=== PATIENT | male | born 1955 | race Caucasian/White ===

== ENCOUNTER 2016-04-19 00:24 | Inpatient (IN) | payer OTHER, BC ==
[~2016-04-19] VITALS: Ht 172.7 cm; Wt 99.1 kg
[2016-04-19 00:49] LABS: ANION GAP 15 MEQ/L (2-14); CHLORIDE 96 mEq/L (99-109); CREATININE 1.8 mg/dL (0.6-1.3); GLUCOSE 225 mg/dL (70-99); ISTAT DEVICE 359068; POTASSIUM > 6.0 mEq/L (3.7-5.4); SODIUM 131 mEq/L (136-147); UREA NITROGEN (BUN) 80 mg/dL (9-23)
[2016-04-19 00:58] LABS: HEMATOCRIT 34.1 % (38.0-50.0); MCH 26.8 PG (29.0-34.0); MCHC 29.3 G/DL (30.0-36.0); MCV 91.4 FL (86-99); MEAN PLAT.VOLUME 12.4 uM^3 (9.0-12.4); PLATELET COUNT 226 K/uL (156-360); RBC DIS.WIDTH-CV 16.2 % (11.8-14.6); RBC DIS.WIDTH-SD 51.9 % (39-53); RED BLOOD COUNT 3.73 M/uL (4.00-5.50); WHITE BLOOD COUNT 16.6 K/uL (4.1-10.2)
[2016-04-19 01:19] LABS: TROP-I INTERPRETATION INDETERMINATE; TROPONIN-I 0.33 ng/mL (0.0-0.30)
[2016-04-19 01:34] LABS: NRBC (%) 0.5 /100 WBC (0-0)
[2016-04-19 01:58] LABS: AMYLASE 54 IU/L (1-118); CHLORIDE 95 mEq/L (99-109); SODIUM 133 mEq/L (136-147)
[2016-04-19 02:00] LABS: GLUCOSE 189 mg/dL (70-99)
[2016-04-19 02:01] LABS: ANION GAP 19 MEQ/L (2-14)
[2016-04-19 02:03] LABS: SERUM ETHYL ALCOHOL < 10 mg/dL
[2016-04-19 02:04] LABS: GFR ESTIMATE (CALCULATED) 32 mL/min/
[2016-04-19 02:05] LABS: UREA NITROGEN (BUN) 65 mg/dL (9-23)
[2016-04-19 02:07] LABS: LIPASE 41 U/L (1.0-51.0)
[2016-04-19 02:13] LABS: POTASSIUM 7.1 mEq/L (3.7-5.4)
[2016-04-19 02:18] LABS: ABS NEUTROPHIL COUNT 9.12; ANISOCYTOSIS 1+; BURR CELLS OCC; EOSINOPHIL ABS CT 0.66; HYPOCHROMASIA 1+; MACROCYTES OCC; MICROCYTOSIS 1+; OVALOCYTES OCC; PLAT.SUFFICIENCY ADEQUATE; POLYCHROMASIA OCC; SCHISTOCYTES RARE; USER ID DCS
[2016-04-19 02:19] LABS: DELETE MACHINE DIFF? YES
[2016-04-19 02:23] LABS: PTT > 150.0 (25-32)
[2016-04-19 02:27] LABS: INTER. NORMALIZED RATIO 1.7; PROTHROMBIN TIME 17.5 (9.2-11.2)
[2016-04-19 04:03] LABS: METH RESISTANT S AUREUS PCR POSITIVE (NEGATIVE)
[2016-04-19 04:07] LABS: PROBE CHECK PASS
[2016-04-19 05:28] LABS: POINT-OF-CARE METER ID UU13113803
[2016-04-19 06:00] VITALS: BP 123/74
[2016-04-19 06:25] LABS: TROP-I INTERPRETATION INDETERMINATE; TROPONIN-I 0.37 ng/mL (0.0-0.30)
[2016-04-19 06:35] LABS: ALKALINE PHOSPHATASE 182 IU/L (3-129); ANION GAP 17 MEQ/L (2-14); CHLORIDE 94 MEQ/L (99-109); GFR ESTIMATE (CALCULATED) 32 mL/min/; GLUCOSE 186 mg/dL (70-99); SAMPLE HEMOLYSIS CHECK 0; SAMPLE ICTERIC CHECK 0; SAMPLE LIPEMIA CHECK 0; SODIUM 135 MEQ/L (136-147); UREA NITROGEN (BUN) 65 mg/dL (9-23)
[2016-04-19 06:42] LABS: POTASSIUM 6.2 MEQ/L (3.7-5.4)
[2016-04-19 06:44] LABS: HEMATOCRIT 35.4 % (38.0-50.0); MCH 27.6 PG (29.0-34.0); MCHC 30.5 G/DL (30.0-36.0); MCV 90.3 FL (86-99); MEAN PLAT.VOLUME 12.6 uM^3 (9.0-12.4); NRBC (%) 0.3 /100 WBC (0-0); PLATELET COUNT 234 K/uL (156-360); RBC DIS.WIDTH-CV 16.5 % (11.8-14.6); RBC DIS.WIDTH-SD 54.5 % (39-53); RED BLOOD COUNT 3.92 M/uL (4.00-5.50); WHITE BLOOD COUNT 18.6 K/uL (4.1-10.2)
[2016-04-19 07:07] LABS: INTER. NORMALIZED RATIO 1.6; PROTHROMBIN TIME 16.7 (9.2-11.2)
[2016-04-19 07:24] LABS: EOSINOPHIL (%) 0.3 % (0-5); EOSINOPHIL COUNT 0.1 K/uL (0-0.3); HEMATOLOGY COMMENT 1 SMEAR COMPATIBLE; IMMATURE GRANULOCYTE (%) 0.6 % (0.0-0.7); IMMATURE GRANULOCYTE COUNT 0.1 K/uL; LYMPHOCYTE COUNT 1.5 K/uL (1.0-2.8); MONOCYTE (%) 11.1 % (3-12); MONOCYTE COUNT 2.1 K/uL (0-0.8); NEUTROPHIL (%) 79.7 % (45-76); NEUTROPHIL COUNT 14.8 K/uL (1.8-6.4); PLAT.SUFFICIENCY ADEQUATE
[2016-04-19 07:32] LABS: PTT > 150.0 (25-32)
[2016-04-19 07:44] LABS: BASE EXCESS -5.1 mEq/L (-3 to +3); BICARBONATE 24.1 mEq/L (22-26); METHEMOGLOBIN 1.5 % (0-1.5); PCO2 66 mm Hg (35-45); PO2 242 mm Hg (80-100)
[2016-04-19 07:45] LABS: COMMENTS - BLOOD GASES +C; DEVICE PB840; FI02 65 %; MECHANICAL RATE 16 resp/min; MODE ACVC+; PEEP 5 CM/H20; SITE RR +A; TIDAL VOLUME 500 ML; TOTAL RESP RATE 19 resp/min
[2016-04-19 07:46] LABS: pH 7.17 (7.35-7.45)
[2016-04-19 11:35] LABS: C DIFF TOXIN NEGATIVE (NEGATIVE); PROBE CHECK PASS; SPECIMEN PROCESSING CONTROL PASS
[2016-04-19 11:59] LABS: BASE EXCESS -1.6 mEq/L (-3 to +3); BICARBONATE 25.1 mEq/L (22-26); CARBOXY HGB 1.9 % (0-5); COMMENTS - BLOOD GASES +C; DEVICE PB840; FI02 80 %; METHEMOGLOBIN 1.5 % (0-1.5); PCO2 51 mm Hg (35-45); PO2 65 mm Hg (80-100); SITE A-LINE
[2016-04-19 12:00] LABS: MECHANICAL RATE 22 resp/min; MODE ACVC+; PEEP 5 CM/H20; TIDAL VOLUME 500 ML; TOTAL RESP RATE 22 resp/min
[2016-04-19 12:39] LABS: HEMATOCRIT 32.1 % (38.0-50.0); MCH 26.6 PG (29.0-34.0); MCHC 30.5 G/DL (30.0-36.0); MCV 87.2 FL (86-99); MEAN PLAT.VOLUME 11.6 uM^3 (9.0-12.4); PLATELET COUNT 196 K/uL (156-360); RBC DIS.WIDTH-CV 16.3 % (11.8-14.6); RBC DIS.WIDTH-SD 52.1 % (39-53); RED BLOOD COUNT 3.68 M/uL (4.00-5.50); WHITE BLOOD COUNT 12.7 K/uL (4.1-10.2)
[2016-04-19 12:41] LABS: INTER. NORMALIZED RATIO 1.6; PROTHROMBIN TIME 16.9 (9.2-11.2)
[2016-04-19 12:53] LABS: CREATINE KINASE 851 IU/L (1-294); TOTAL CK 851 IU/L (1-294)
[2016-04-19 13:09] LABS: TROP-I INTERPRETATION POSITIVE
[2016-04-19 13:14] LABS: TROPONIN-I 2.29 ng/mL (0.0-0.30)
[2016-04-19 13:20] LABS: CK-MB 64.5 ng/mL (0.0-4.9)
[2016-04-19 14:15] LABS: ANION GAP 19 MEQ/L (2-14); CHLORIDE 95 MEQ/L (99-109); GFR ESTIMATE (CALCULATED) 32 mL/min/; GLUCOSE 272 mg/dL (70-99); SAMPLE HEMOLYSIS CHECK 0; SAMPLE ICTERIC CHECK 0; SAMPLE LIPEMIA CHECK 0; SODIUM 135 MEQ/L (136-147); UREA NITROGEN (BUN) 73 mg/dL (9-23)
[2016-04-19 14:16] LABS: POTASSIUM 4.5 MEQ/L (3.7-5.4)
[2016-04-19 14:20] LABS: EOSINOPHIL (%) 0.2 % (0-5); HEMATOLOGY COMMENT 1 SMEAR COMPATIBLE; IMMATURE GRANULOCYTE (%) 0.4 % (0.0-0.7); IMMATURE GRANULOCYTE COUNT 0.1 K/uL; LYMPHOCYTE COUNT 0.8 K/uL (1.0-2.8); MONOCYTE (%) 6.9 % (3-12); MONOCYTE COUNT 0.9 K/uL (0-0.8); NEUTROPHIL (%) 86.2 % (45-76); NEUTROPHIL COUNT 10.9 K/uL (1.8-6.4); PLAT.SUFFICIENCY ADEQUATE
[2016-04-19 18:35] LABS: HEMATOCRIT 32.5 % (38.0-50.0); MCH 26.4 PG (29.0-34.0); MCHC 31.1 G/DL (30.0-36.0); MCV 84.9 FL (86-99); MEAN PLAT.VOLUME 11.6 uM^3 (9.0-12.4); PLATELET COUNT 209 K/uL (156-360); RBC DIS.WIDTH-CV 16.3 % (11.8-14.6); RBC DIS.WIDTH-SD 50.5 % (39-53); RED BLOOD COUNT 3.83 M/uL (4.00-5.50); WHITE BLOOD COUNT 10.2 K/uL (4.1-10.2)
[2016-04-19 18:36] LABS: EOSINOPHIL (%) 0.4 % (0-5); IMMATURE GRANULOCYTE (%) 0.2 % (0.0-0.7); LYMPHOCYTE COUNT 1.2 K/uL (1.0-2.8); MONOCYTE (%) 6.1 % (3-12); MONOCYTE COUNT 0.6 K/uL (0-0.8); NEUTROPHIL (%) 81.9 % (45-76); NEUTROPHIL COUNT 8.3 K/uL (1.8-6.4)
[2016-04-19 18:45] LABS: INTER. NORMALIZED RATIO 1.6; PROTHROMBIN TIME 16.1 (9.2-11.2); PTT 48.3 (25-32)
[2016-04-19 18:58] LABS: ANION GAP 11 MEQ/L (2-14); CHLORIDE 96 MEQ/L (99-109); CREATINE KINASE 710 IU/L (1-294); GFR ESTIMATE (CALCULATED) 31 mL/min/; GLUCOSE 273 mg/dL (70-99); SAMPLE HEMOLYSIS CHECK 0; SAMPLE ICTERIC CHECK 0; SAMPLE LIPEMIA CHECK 0; SODIUM 135 MEQ/L (136-147); TOTAL CK 710 IU/L (1-294); UREA NITROGEN (BUN) 75 mg/dL (9-23)
[2016-04-19 19:04] LABS: TROP-I INTERPRETATION POSITIVE
[2016-04-19 19:17] LABS: TROPONIN-I 2.66 ng/mL (0.0-0.30)
[2016-04-19 19:51] LABS: BICARBONATE 27.1 mEq/L (22-26); CARBOXY HGB 1.9 % (0-5); METHEMOGLOBIN 1.3 % (0-1.5); PCO2 49 mm Hg (35-45); pH 7.35 (7.35-7.45)
[2016-04-19 19:52] LABS: COMMENTS - BLOOD GASES C+; PO2 80 mm Hg (80-100); SITE A LINE
[2016-04-19 19:53] LABS: DEVICE VENTILATOR; FI02 80 %; MECHANICAL RATE 22 resp/min; MODE AC VC+; PEEP 5 CM/H20; TIDAL VOLUME 500 ML; TOTAL RESP RATE 22 resp/min
[2016-04-19 20:53] LABS: CK-MB 59.4 ng/mL (0.0-4.9)
[2016-04-19] MEDS ORDERED: LEVOTHYROXINE75 MCG GT (22:25)
[2016-04-19] MEDS ORDERED: HEPARIN SO5000 UNITS SC (22:26)
[2016-04-19] MEDS ORDERED: GERI-TUSSI100 MG/5 M GT (22:26)
[2016-04-19] MEDS ORDERED: NEURONTIN50 MG/ML GT (22:27)
[2016-04-19] MEDS ORDERED: KLONOPIN0.5 M1 GT ×2 (22:28→22:38)
[2016-04-19] MEDS ORDERED: ATROVENT 00.5 MG/2.5 IH ×2 (22:29→22:41)
[2016-04-19] MEDS ORDERED: ALBUTEROL2.5 MG/3 M IH (22:29)
[2016-04-19] MEDS ORDERED: GLIPIZIDE5 MG GT (22:34)
[2016-04-19] MEDS ORDERED: ACIDOPHILUS1 EAC5 GT (22:35)
[2016-04-19] MEDS ORDERED: LORATADINE10 M2 GT (22:35)
[2016-04-19] MEDS ORDERED: SIMVASTATIN40 MG GT (22:36)
[2016-04-19] MEDS ORDERED: MELATIN3 MG GT (22:36)
[2016-04-19] MEDS ORDERED: MIRTAZAPINE15 MG GT (22:37)
[2016-04-19] MEDS ORDERED: OXYCODONE HCL10 MG GT (22:38)
[2016-04-19] MEDS ORDERED: PROVENTIL,2.5 MG/3 M IH (22:40)
[2016-04-19] MEDS ORDERED: CHILDREN'S160 MG/23 GT (22:40)
[2016-04-19] MEDS ORDERED: BISAC-EVAC10 MG PR (22:46)
[2016-04-19] MEDS ORDERED: MILK OF MAGN GT (22:46)
[2016-04-19] MEDS ORDERED: FLEET ENEMA EX230 ML PR (22:47)
[2016-04-20] VITALS (15 sets, daily range): BP systolic 59–114; BP diastolic 38–68
[2016-04-20 00:20] LABS: POINT-OF-CARE METER ID UU13113748
[2016-04-20 00:28] LABS: HEMATOCRIT 33.4 % (38.0-50.0); MCH 26.3 PG (29.0-34.0); MCHC 31.1 G/DL (30.0-36.0); MCV 84.3 FL (86-99); MEAN PLAT.VOLUME 11.9 uM^3 (9.0-12.4); PLATELET COUNT 235 K/uL (156-360); RBC DIS.WIDTH-CV 16.2 % (11.8-14.6); RBC DIS.WIDTH-SD 49.1 % (39-53); RED BLOOD COUNT 3.96 M/uL (4.00-5.50); WHITE BLOOD COUNT 8.5 K/uL (4.1-10.2)
[2016-04-20 00:40] LABS: INTER. NORMALIZED RATIO 1.6; PROTHROMBIN TIME 16.6 (9.2-11.2); PTT 51.6 (25-32)
[2016-04-20 00:50] LABS: TROP-I INTERPRETATION POSITIVE
[2016-04-20 00:56] LABS: TROPONIN-I 3.04 ng/mL (0.0-0.30)
[2016-04-20 01:21] LABS: BASE EXCESS 2.4 mEq/L (-3 to +3); BICARBONATE 27.8 mEq/L (22-26); CARBOXY HGB 1.9 % (0-5); METHEMOGLOBIN 1.4 % (0-1.5); PCO2 46 mm Hg (35-45); PO2 83 mm Hg (80-100); pH 7.39 (7.35-7.45)
[2016-04-20 02:04] LABS: ANISOCYTOSIS 2+; MACROCYTES 1+; MICROCYTOSIS 1+; OVALOCYTES FEW; PLAT.SUFFICIENCY ADEQUATE
[2016-04-20 02:05] LABS: EOSINOPHIL (%) 2.7 % (0-5); EOSINOPHIL COUNT 0.2 K/uL (0-0.3); IMMATURE GRANULOCYTE (%) 0.3 % (0.0-0.7); LYMPHOCYTE COUNT 1.2 K/uL (1.0-2.8); MONOCYTE (%) 5.6 % (3-12); MONOCYTE COUNT 0.4 K/uL (0-0.8); NEUTROPHIL (%) 76.5 % (45-76)
[2016-04-20 05:17] LABS: COMMENTS - BLOOD GASES C+; DEVICE PB840; FI02 50 %; MODE AC; SITE A-LINE
[2016-04-20 05:18] LABS: MECHANICAL RATE 20 resp/min; PEEP 10 CM/H20; TIDAL VOLUME 470 ML; TOTAL RESP RATE 20 resp/min
[2016-04-20 05:54] LABS: POINT-OF-CARE METER ID UU14174217
[2016-04-20 05:59] LABS: HEMATOCRIT 34.3 % (38.0-50.0); MCH 26.7 PG (29.0-34.0); MCHC 32.1 G/DL (30.0-36.0); MCV 83.3 FL (86-99); MEAN PLAT.VOLUME 11.3 uM^3 (9.0-12.4); PLATELET COUNT 230 K/uL (156-360); RBC DIS.WIDTH-CV 16.4 % (11.8-14.6); RBC DIS.WIDTH-SD 50.2 % (39-53); RED BLOOD COUNT 4.12 M/uL (4.00-5.50); WHITE BLOOD COUNT 9.4 K/uL (4.1-10.2)
[2016-04-20 06:14] LABS: TROP-I INTERPRETATION POSITIVE
[2016-04-20 06:15] LABS: TROPONIN-I 2.99 ng/mL (0.0-0.30)
[2016-04-20 06:18] LABS: EOSINOPHIL COUNT 0.5 K/uL (0-0.3); IMMATURE GRANULOCYTE (%) 0.3 % (0.0-0.7); LYMPHOCYTE COUNT 1.3 K/uL (1.0-2.8); MONOCYTE (%) 5.5 % (3-12); MONOCYTE COUNT 0.5 K/uL (0-0.8); NEUTROPHIL (%) 75.3 % (45-76); NEUTROPHIL COUNT 7.1 K/uL (1.8-6.4)
[2016-04-20 06:30] LABS: PTT 47.6 (25-32)
[2016-04-20 06:39] LABS: INTER. NORMALIZED RATIO 1.6; PROTHROMBIN TIME 16.6 (9.2-11.2)
[2016-04-20 06:43] LABS: ANION GAP 13 MEQ/L (2-14); CHLORIDE 99 MEQ/L (99-109); CREATINE KINASE 460 IU/L (1-294); GFR ESTIMATE (CALCULATED) 27 mL/min/; GLUCOSE 154 mg/dL (70-99); HDL CHOLESTEROL 22 MG/DL (Desirable>=40); LDL CHOLESTEROL 24 mg/dL (Desirable<100); MAGNESIUM 1.9 mg/dl (1.3-2.7); NON-HDL CHOLESTEROL 53 mg/dL (Desirable<160); POTASSIUM 3.8 MEQ/L (3.7-5.4); SAMPLE HEMOLYSIS CHECK 0; SAMPLE ICTERIC CHECK 0; SAMPLE LIPEMIA CHECK 0; SODIUM 139 MEQ/L (136-147); TOTAL CHOLESTEROL 75 mg/dL (Desirable<200); TOTAL CK 460 IU/L (1-294); TRIGLYCERIDES 145 MG/DL (Normal: <150); UREA NITROGEN (BUN) 76 mg/dL (9-23)
[2016-04-20 07:43] LABS: Estimated Average Glucose 128 mg/dL (70-123); HEMOGLOBIN A1c (GLYCOHEMOGLOB) 6.1 % HGB (Below 5.7)
[2016-04-20 12:28] LABS: POINT-OF-CARE METER ID UU13113731
[2016-04-20 13:41] LABS: INTER. NORMALIZED RATIO 1.6; PROTHROMBIN TIME 16.6 (9.2-11.2); PTT 37.6 (25-32)
[2016-04-20 13:42] LABS: HEMATOCRIT 34.3 % (38.0-50.0); MCH 26.4 PG (29.0-34.0); MCHC 31.8 G/DL (30.0-36.0); MCV 83.1 FL (86-99); MEAN PLAT.VOLUME 12.1 uM^3 (9.0-12.4); NRBC (%) 0.4 /100 WBC (0-0); PLATELET COUNT 223 K/uL (156-360); RBC DIS.WIDTH-CV 16.8 % (11.8-14.6); RBC DIS.WIDTH-SD 50.8 % (39-53); RED BLOOD COUNT 4.13 M/uL (4.00-5.50)
[2016-04-20 13:52] LABS: TROP-I INTERPRETATION POSITIVE
[2016-04-20 14:13] LABS: TROPONIN-I 3.06 ng/mL (0.0-0.30)
[2016-04-20 14:14] LABS: CK-MB 39.4 ng/mL (0.0-4.9)
[2016-04-20 14:16] LABS: EOSINOPHIL (%) 4.7 % (0-5); EOSINOPHIL COUNT 0.5 K/uL (0-0.3); IMMATURE GRANULOCYTE (%) 0.2 % (0.0-0.7); LYMPHOCYTE COUNT 1.3 K/uL (1.0-2.8); MONOCYTE COUNT 0.8 K/uL (0-0.8); NEUTROPHIL (%) 76.3 % (45-76); NEUTROPHIL COUNT 8.4 K/uL (1.8-6.4)
[2016-04-20 14:24] LABS: ANION GAP 13 MEQ/L (2-14); CHLORIDE 101 MEQ/L (99-109); CREATINE KINASE 288 IU/L (1-294); GFR ESTIMATE (CALCULATED) 27 mL/min/; GLUCOSE 123 mg/dL (70-99); MAGNESIUM 1.7 mg/dl (1.3-2.7); SAMPLE HEMOLYSIS CHECK 0; SAMPLE ICTERIC CHECK 0; SAMPLE LIPEMIA CHECK 0; SODIUM 139 MEQ/L (136-147); TOTAL CK 288 IU/L (1-294); UREA NITROGEN (BUN) 75 mg/dL (9-23)
[2016-04-20 17:34] LABS: POINT-OF-CARE METER ID UU13113731
[2016-04-20 18:11] LABS: INTER. NORMALIZED RATIO 1.6; PROTHROMBIN TIME 16.5 (9.2-11.2); PTT 37.6 (25-32)
[2016-04-20 18:19] LABS: HEMATOCRIT 34.1 % (38.0-50.0); MCH 26.4 PG (29.0-34.0); MCHC 31.4 G/DL (30.0-36.0); MCV 84.2 FL (86-99); MEAN PLAT.VOLUME 11.5 uM^3 (9.0-12.4); PLATELET COUNT 221 K/uL (156-360); RBC DIS.WIDTH-CV 16.9 % (11.8-14.6); RBC DIS.WIDTH-SD 51.5 % (39-53); RED BLOOD COUNT 4.05 M/uL (4.00-5.50); WHITE BLOOD COUNT 13.4 K/uL (4.1-10.2)
[2016-04-20 18:25] LABS: CK-MB 30.7 ng/mL (0.0-4.9)
[2016-04-20 18:26] LABS: TROP-I INTERPRETATION POSITIVE
[2016-04-20 18:34] LABS: EOSINOPHIL (%) 3.7 % (0-5); EOSINOPHIL COUNT 0.5 K/uL (0-0.3); IMMATURE GRANULOCYTE (%) 0.5 % (0.0-0.7); IMMATURE GRANULOCYTE COUNT 0.1 K/uL; LYMPHOCYTE COUNT 1.7 K/uL (1.0-2.8); MONOCYTE COUNT 0.9 K/uL (0-0.8); NEUTROPHIL (%) 75.7 % (45-76); NEUTROPHIL COUNT 10.1 K/uL (1.8-6.4)
[2016-04-20 18:39] LABS: TROPONIN-I 1.98 ng/mL (0.0-0.30)
[2016-04-20 18:41] LABS: ANION GAP 11 MEQ/L (2-14); CHLORIDE 102 MEQ/L (99-109); CREATINE KINASE 205 IU/L (1-294); GFR ESTIMATE (CALCULATED) 26 mL/min/; GLUCOSE 105 mg/dL (70-99); MAGNESIUM 1.7 mg/dl (1.3-2.7); POTASSIUM 4.7 MEQ/L (3.7-5.4); SAMPLE HEMOLYSIS CHECK 0; SAMPLE ICTERIC CHECK 0; SAMPLE LIPEMIA CHECK 0; SODIUM 140 MEQ/L (136-147); TOTAL CK 205 IU/L (1-294); UREA NITROGEN (BUN) 74 mg/dL (9-23)
== END 2016-04-20 23:30 | DRG 270 ==
LOC: EME 00:24 → CATH 00:50 → 2SOUTH 01:47 → 4WEST 02:18
PROVIDERS: Anesthesiology; Emergency Medicine; Internal Medicine Cardiovascular Disease; Internal Medicine Pulmonary Disease
PROC: 5A2204Z Restoration of Cardiac Rhythm, Single (ICD-10-PCS; principal; 2016-04-19)
PROC: 5A02210 Assistance with Cardiac Output using Balloon Pump, Continuous (ICD-10-PCS; principal; 2016-04-19)
PROC: B215YZZ Fluoroscopy of Left Heart using Other Contrast (ICD-10-PCS; principal; 2016-04-19)
PROC: 4A023N7 Measurement of Cardiac Sampling and Pressure, Left Heart, Percutaneous Approach (ICD-10-PCS; principal; 2016-04-19)
PROC: B211YZZ Fluoroscopy of Multiple Coronary Arteries using Other Contrast (ICD-10-PCS; principal; 2016-04-19)
PROC: 5A1945Z Respiratory Ventilation, 24-96 Consecutive Hours (ICD-10-PCS; principal; 2016-04-19)
DX: I21.3 ST elevation (STEMI) myocardial infarction of unspecified site (principal); I25.10 Atherosclerotic heart disease of native coronary artery without angina pectoris; K72.00 Acute and subacute hepatic failure without coma; J96.21 Acute and chronic respiratory failure with hypoxia; R40.20 Unspecified coma; E87.1 Hypo-osmolality and hyponatremia; E87.2 Acidosis; N17.9 Acute kidney failure, unspecified; I48.91 Unspecified atrial fibrillation; J84.10 Pulmonary fibrosis, unspecified; I42.9 Cardiomyopathy, unspecified; K21.9 Gastro-esophageal reflux disease without esophagitis; E03.9 Hypothyroidism, unspecified; E78.5 Hyperlipidemia, unspecified; Z93.0 Tracheostomy status; E87.5 Hyperkalemia; R57.0 Cardiogenic shock; R68.0 Hypothermia, not associated with low environmental temperature; F32.9 Major depressive disorder, single episode, unspecified; E11.40 Type 2 diabetes mellitus with diabetic neuropathy, unspecified
CPT/HCPCS: 36600; 80047; 80048; 80048 91; 80053; 80061; 81003; 82150; 82330; 82550; 82550 91; 82553; 82803; 82948; 83036; 83605; 83690; 83735; 83880; 84484; 84999; 85025; 85025 91; 85347; 85610; 85730; 86850; 86860; 86870; 86880; 86900; 86901; 86905; 86920; 87040; 87070; 87077; 87081; 87186; 87205; 87493; 87641; 90832; 93005; 94002; 94003; 94640; 94640 76; 99202; 99281; 99285; C1769; C1887; C1894; G0480; J0461; J1644; J1815; J2250; J3010; J7030